=== PATIENT | male | born 1990 | race Caucasian/White ===

== ENCOUNTER 2020-01-04 17:22 | Emergency (ER) | payer SELFPAY ==
[~2020-01-04] VITALS: Ht 185.4 cm; Wt 81.6 kg
[2020-01-04 17:33] VITALS: BP 160/99
--- NOTE | 2020-01-04 17:35 | NUR ---
29/M c/o sore throat, CARBALLO, diarrhea, n/v, nasal congestion on/off x 2 weeks. States son tested positive 2 weeks ago. Denies cough, SOB, fever. Pt states "I feel very anxious right now that I might have COVID" Hx- denies Allergy- PCN
--- NOTE | 2020-01-04 17:37 | NUR ---
PA RITCHIE evaluating pt in tent
--- NOTE | 2020-01-04 17:45 | NUR ---
Pt swabbed for COVID, sample dropped off at lab with paperwork
[2020-01-04 18:06] VITALS: BP 160/99
--- NOTE | 2020-01-04 18:06 | NUR ---
Patient discharged with v/s stable. Written and verbal after care instructions given and explained. Patient alert, oriented and verbalized understanding of instructions. Ambulatory with steady gait. All questions addressed prior to discharge. ID band removed. Patient advised to follow up with PMD. Rx of Zofran, Loperamide, Promethazine given. Patient educated on indication of medication including possible reaction and side effects. Opportunity to ask questions provided and answered. COVID iso precautions info sheet given to pt. Also excuse from work given to pt.
== END 2020-01-04 18:06 | disposition home or self-care (01) ==
LOC: MED 17:22
DX: B34.9 Viral infection, unspecified (principal); R03.0 Elevated blood-pressure reading, without diagnosis of hypertension; F17.210 Nicotine dependence, cigarettes, uncomplicated; Z88.0 Allergy status to penicillin; Z20.828 Contact with and (suspected) exposure to other viral communicable diseases
CPT/HCPCS: 99283; U0003